=== PATIENT | female | born 1960 | race Caucasian/White ===

== ENCOUNTER 2020-03-02 11:41 | Outpatient (CLI) | payer OTHER | END 2020-03-02 23:59 | disposition home or self-care (01) | LOC: CFH 11:41 | PROVIDERS: ATTEND Nurse Practitioner Family | DX: M16.12 Unilateral primary osteoarthritis, left hip (principal); M25.752 Osteophyte, left hip ==

== ENCOUNTER → 2020-08-07 | Outpatient (CLI) | payer OTHER ==
[~2020-08-07] MED LIST: FENO130C12 PO; LEVO137T3 PO; SERT100T32 PO; SERT50TA28 PO; VALS160T3 PO
[2020-08-07 16:16] LABS: BASOPHILS % (AUTO) 1 % (0-1); EOSINOPHILS % (AUTO) 2 % (1-7); LYMPHOCYTES % (AUTO) 28 % (22-44); MEAN CORPUSCULAR HEMOGLOBIN 33.7 pg (27.0-34.8); MEAN CORPUSCULAR HGB CONC 34.1 g/dL (32.4-35.8); MEAN PLATELET VOLUME 7.7 fL (7.4-10.4); MONOCYTES % (AUTO) 9 % (2-9); NEUTROPHILS % (AUTO) 61 % (42-75); PLATELET COUNT 235 x10^3/uL (130-400); RED BLOOD COUNT 4.54 x10^6/uL (3.82-5.3); RED CELL DISTRIBUTION WIDTH 16.3 % (9.6-15.2)
[2020-08-07 16:20] LABS: MD NO
[2020-08-07 16:26] LABS: ALBUMIN 4.1 g/dL (3.4-5.0); ANION GAP 4 mmol/L (5-15); CHLORIDE 104 mmol/L (98-107)
[2020-08-07 16:30] LABS: ALANINE AMINOTRANSFERASE 29 U/L (12-78); ALKALINE PHOSPHATASE 66 U/L (45-117); BILIRUBIN,TOTAL 0.6 mg/dL (0.2-1.0); CREATININE 1.06 mg/dL (0.55-1.02); TOTAL PROTEIN 8.4 g/dL (6.4-8.2)
== END | disposition home or self-care (01) ==
LOC: STAR 14:31
PROVIDERS: ATTEND Orthopaedic Surgery
DX: Z01.818 Encounter for other preprocedural examination (principal); M25.552 Pain in left hip
CPT/HCPCS: 36415; 80053; 85025; 87081; 93005

== ENCOUNTER → 2020-08-10 | Outpatient (CLI) | payer OTHER | END | disposition home or self-care (01) | LOC: STAR 15:34 | PROVIDERS: ATTEND Anesthesiology | DX: Z01.812 Encounter for preprocedural laboratory examination (principal); Z20.828 Contact with and (suspected) exposure to other viral communicable diseases | CPT/HCPCS: 36415; 87635 ==

== ENCOUNTER 2020-08-15 12:32 | Observation (INO) | payer OTHER ==
[~2020-08-15] VITALS: Ht 167.6 cm; Wt 103.6 kg
[2020-08-15 13:17] VITALS: BP 143/85
[2020-08-15] MEDS ORDERED: CHLORHEXIDINE 15 ML UDC ONE (13:24)
[2020-08-15] MEDS ORDERED: LACTATED RINGERS 1,000 ML IV SCH (13:30)
[2020-08-15] MEDS ORDERED: CHLORHEXIDINE 15 ML UDC MM ONE (13:30)
[2020-08-15] MEDS ORDERED: SODIUM CHLORIDE 0.9% 50 ML ONE (14:16)
[2020-08-15] MEDS ORDERED: VANCOMYCIN 1,000 MG ONE (14:16)
[2020-08-15] MEDS ORDERED: KETOROLAC 60 MG/2 ML ONE (14:16)
[2020-08-15] MEDS ORDERED: ROPIvacaine/PF 0.2%, 20 ML ONE (14:16)
[2020-08-15] MEDS ORDERED: TRANEXAMIC ACID 100 MG/ML, 10ML ONE ×2 (14:16)
[2020-08-15] MEDS ORDERED: EPINEPHRINE 1 MG/ML, 1ML ONE (14:17)
[2020-08-15] MEDS ORDERED: MIDAZOLAM 1 MG/ML, 2ML ONE (15:00)
[2020-08-15] MEDS ORDERED: FENTANYL PF 250 MCG/5ML ONE (15:00)
[2020-08-15] MEDS ORDERED: SCOPOLAMINE 1MG PATCH TD ONE ×2 (15:13)
[2020-08-15] MEDS ORDERED: ACETAMINOPHEN 500 MG TABLET ONE ×2 (15:13)
[2020-08-15] MEDS ORDERED: DEXAMETHASONE 4 MG/ML, 1ML ONE (15:27)
[2020-08-15] MEDS ORDERED: ROCURONIUM 10MG/ML,5ML ONE (15:27)
[2020-08-15] MEDS ORDERED: CEFAZOLIN 1,000 MG ONE (15:27)
[2020-08-15] MEDS ORDERED: SUCCINYLCHOLINE 20 MG/ML, 10ML ONE (15:27)
[2020-08-15] MEDS ORDERED: PROPOFOL 10 MG/ML, 20ML ONE (15:27)
[2020-08-15] MEDS ORDERED: ONDANSETRON 2MG/ML, 2ML ONE (15:27)
[2020-08-15] MEDS ORDERED: OXYcodone 5 MG/5 ML ORAL.SOL UDC PO PRN (16:30)
[2020-08-15] MEDS ORDERED: DIAZEPAM 5 MG/ML, 2ML IVPush PRN (16:30)
[2020-08-15] MEDS ORDERED: LABETALOL 5MG/ML, 20ML IV PRN (16:30)
[2020-08-15] MEDS ORDERED: ACETAMINOPHEN 325 MG TABLET PO PRN (16:30)
[2020-08-15] MEDS ORDERED: ALBUTEROL SULFATE 2.5 MG/3 ML NPPB PRN (16:30)
[2020-08-15] MEDS ORDERED: KETOROLAC 30 MG/1 ML IV PRN (16:30)
[2020-08-15] MEDS ORDERED: PROMETHAZINE 25 MG/ML, 1ML IV PRN (16:30)
[2020-08-15] MEDS ORDERED: MEPERIDINE/PF 25MG/0.5ML IVPush PRN (16:30)
[2020-08-15] MEDS ORDERED: hydrALAzine 20 MG/ML, 1ML IV PRN (16:30)
[2020-08-15] MEDS ORDERED: FENTANYL PF 100 MCG/2ML ONE (17:20)
[2020-08-15] MEDS: FENTANYL PF 100 MCG/2ML IV PRN ×2 (17:25→17:30)
[2020-08-15] MEDS ORDERED: HYDROmorphone 1 MG/ML, 1ML INJ ONE (17:29)
[2020-08-15] MEDS ORDERED: MORPHINE SULFATE 4 MG/ML, 1ML IVPush PRN (17:30)
[2020-08-15] MEDS ORDERED: DIPHENHYDRAMINE 50 MG/ML, 1ML IVPush PRN (17:30)
[2020-08-15] MEDS ORDERED: DIAZEPAM 5 MG TABLET PO PRN (17:30)
[2020-08-15] MEDS ORDERED: PROMETHAZINE 12.5 MG SUPP PR PRN (17:30)
[2020-08-15] MEDS ORDERED: ONDANSETRON 2MG/ML, 2ML IVPush PRN (17:30)
[2020-08-15] MEDS ORDERED: ONDANSETRON 4 MG TABLET PO PRN (17:30)
[2020-08-15] MEDS: HYDROmorphone 2 MG/ML, 1ML IVPush PRN ×2 (17:35→17:42)
[2020-08-15] MEDS ORDERED: OXYcodone 5 MG/5 ML ORAL.SOL UDC ONE (17:41)
[2020-08-15] MEDS ORDERED: DIAZEPAM 5 MG/ML, 2ML ONE (17:54)
[2020-08-15] MEDS ORDERED: TRANEXAMIC ACID 1,000 MG in SODIUM CHLORIDE 0.9% 100 ML IVPB ONE (18:00)
[2020-08-15 19:40] VITALS: BP 118/72
[2020-08-15] MEDS: DOCUSATE 100 MG CAPSULE PO SCH (20:18)
[2020-08-15] MEDS: KETOROLAC 30 MG/1 ML IV SCH (20:19)
[2020-08-15] MEDS: CEFAZOLIN PMX 1GM/50ML 50 ML IVPB SCH (23:33)
[2020-08-15] MEDS: OXYcodone/APAP 5/325MG TABLET PO PRN (23:35)
[2020-08-15 23:43] VITALS: BP 111/61
[2020-08-16] MEDS: OXYcodone/APAP 5/325MG TABLET PO PRN ×2 (03:16→08:20)
[2020-08-16 03:30] VITALS: BP 116/64
[2020-08-16] MEDS: KETOROLAC 30 MG/1 ML IV SCH ×2 (03:30→10:46)
[2020-08-16] MEDS ORDERED: ASPIRIN 81 MG TABLET EC PO SCH ×2 (06:00→18:00)
[2020-08-16 07:55] VITALS: BP 120/59
[2020-08-16] MEDS: CEFAZOLIN PMX 1GM/50ML 50 ML IVPB SCH (08:19)
[2020-08-16] MEDS: DOCUSATE 100 MG CAPSULE PO SCH (08:20)
[2020-08-16] MEDS ORDERED: SERTRALINE 50MG TABLET PO SCH ×2 (09:00)
[2020-08-16] MEDS ORDERED: SERTRALINE 100MG TABLET PO SCH (09:00)
[2020-08-16] MEDS ORDERED: LEVOTHYROXINE 137 MCG TABLET PO SCH (09:00)
[2020-08-16] MEDS ORDERED: VALSARTAN 160 MG TABLET PO SCH (09:00)
[2020-08-16 10:30] VITALS: BP 96/58
== END 2020-08-16 11:53 | disposition home or self-care (01) ==
LOC: OUT 12:32 → ORIP 17:15 → 2NW 18:33
PROVIDERS: ADMIT Orthopaedic Surgery; ATTEND Orthopaedic Surgery
DX: M16.12 Unilateral primary osteoarthritis, left hip (principal); I10 Essential (primary) hypertension; E03.9 Hypothyroidism, unspecified; E66.9 Obesity, unspecified; Z96.642 Presence of left artificial hip joint; Z87.891 Personal history of nicotine dependence; Z79.899 Other long term (current) drug therapy
CPT/HCPCS: 27130; 36415; 73502; 86850; 86900; 96365; 96366; 96375; 96376; 97162; C1713; C1776; G0378; J0171; J0330; J0690; J1100; J1170; J1885; J2250; J2405; J2704; J2795; J3010; J3360; J3370; J7120

== ENCOUNTER 2021-02-15 08:03 | Inpatient (IN) | payer OTHER ==
[~2021-02-15] VITALS: Ht 167.6 cm; Wt 101.2 kg
--- NOTE | 2021-02-15 09:11 | NUR ---
PT PLACED ON ALL ROOM MONITORING. SAT READING 93% ON 4LITERS VIA NC. PT STATES LESS SOB WITH OXYGEN. IV PLACED, LABS INCLUDING BC X 1 DRAWN WITH START. REPORT TO MINGO ACEVEDO, TRANSFER OF CARE AT THIS TIME.
[2021-02-15 09:27] LABS: BASOPHILS % (AUTO) 1 % (0-1); EOSINOPHILS % (AUTO) 3 % (1-7); LYMPHOCYTES % (AUTO) 7 % (22-44); MEAN CORPUSCULAR HEMOGLOBIN 33.9 pg (27.0-34.8); MEAN CORPUSCULAR HGB CONC 33.4 g/dL (32.4-35.8); MEAN PLATELET VOLUME 7.8 fL (7.4-10.4); MONOCYTES % (AUTO) 7 % (2-9); NEUTROPHILS % (AUTO) 82 % (42-75); PLATELET COUNT 250 x10^3/uL (130-400); RED BLOOD COUNT 4.43 x10^6/uL (3.82-5.3); RED CELL DISTRIBUTION WIDTH 15.4 % (9.6-15.2)
[2021-02-15 09:33] LABS: MD NO
[2021-02-15 09:38] LABS: ALANINE AMINOTRANSFERASE 20 U/L (12-78); ALBUMIN 3.2 g/dL (3.4-5.0); ANION GAP 7 mmol/L (5-15); CALCIUM 9.1 mg/dL (8.5-10.1); CHLORIDE 107 mmol/L (98-107)
[2021-02-15 09:43] LABS: ALKALINE PHOSPHATASE 67 U/L (45-117); CREATININE 1.02 mg/dL (0.55-1.02); TOTAL PROTEIN 7.7 g/dL (6.4-8.2)
[2021-02-15] MEDS ORDERED: CEFTRIAXONE 1,000 MG in DEXTROSE 5% 50 ML IVPB ONE (10:00)
[2021-02-15] MEDS ORDERED: ENALAPRILAT 1.25 MG/ML, 2ML IVPush PRN (11:00)
[2021-02-15] MEDS ORDERED: ONDANSETRON ODT 4 MG PO PRN (11:00)
[2021-02-15] MEDS ORDERED: BENZONATATE 100 MG CAPSULE PO ONE (11:00)
[2021-02-15] MEDS ORDERED: GUAIFENESIN/DM 200-20MG, 10ML UDC PO PRN (11:00)
[2021-02-15] MEDS ORDERED: MELATONIN 5 MG TABLET PO PRN (11:00)
[2021-02-15] MEDS ORDERED: POLYETHYLENE GLYCOL 17 GM PACKET PO PRN (11:00)
[2021-02-15] MEDS ORDERED: ONDANSETRON 2MG/ML, 2ML IVPush PRN (11:00)
[2021-02-15] MEDS ORDERED: morphine SULFATE 10 MG/ML, 1ML IVPush PRN (11:00)
[2021-02-15] MEDS: DOXYCYCLINE 100 MG in DEXTROSE 5% 250 ML IV SCH ×2 (11:09→21:52)
[2021-02-15 11:13] LABS: BASOPHILS % (AUTO) 0 % (0-1); EOSINOPHILS % (AUTO) 3 % (1-7); LYMPHOCYTES % (AUTO) 10 % (22-44); MEAN CORPUSCULAR HGB CONC 33.5 g/dL (32.4-35.8); MEAN PLATELET VOLUME 7.4 fL (7.4-10.4); MONOCYTES % (AUTO) 5 % (2-9); NEUTROPHILS % (AUTO) 82 % (42-75); PLATELET COUNT 223 x10^3/uL (130-400); RED BLOOD COUNT 4.19 x10^6/uL (3.82-5.3); RED CELL DISTRIBUTION WIDTH 15.3 % (9.6-15.2)
[2021-02-15] MEDS ORDERED: BENZONATATE 100 MG CAPSULE ONE (11:24)
[2021-02-15] MEDS ORDERED: ENOXAPARIN 40 MG/0.4 ML ONE (11:24)
[2021-02-15] MEDS: ENOXAPARIN 40 MG/0.4 ML SQ SCH (11:28)
[2021-02-15 11:57] LABS: MD SCAN
[2021-02-15 12:08] LABS: HCT (SEDRATE) 42.6 % (34.6-47.8)
[2021-02-15 14:22] LABS: TROPONIN I 0.028 ng/mL (0.000-0.045)
[2021-02-15] MEDS ORDERED: OMNIPAQUE 350 MG/ML, 75ML BOTTLE ONE (15:04)
[2021-02-15] MEDS ORDERED: ACETAMINOPHEN 325 MG TABLET ONE (15:57)
[2021-02-15] MEDS: ACETAMINOPHEN 325 MG TABLET PO PRN ×2 (15:58→21:23)
--- NOTE | 2021-02-15 16:05 | NUR ---
PT MEDICATED PER MAR FOR PAIN
[2021-02-15 16:26] LABS: RAPID INFLUENZA A Negative (Negative); RAPID INFLUENZA B Negative (Negative)
[2021-02-15 17:44] VITALS: BP 123/75
[2021-02-15] MEDS ORDERED: FUROSEMIDE 40 MG/4 ML IV ONE (18:30)
[2021-02-15 20:39] LABS: TROPONIN I < 0.015 ng/mL (0.000-0.045)
[2021-02-15 21:05] VITALS: BP 123/85
[2021-02-16 00:58] VITALS: BP 101/65
[2021-02-16] MEDS ORDERED: FUROSEMIDE 20 MG/2 ML IV ONE (01:30)
[2021-02-16 04:19] LABS: ALBUMIN 2.8 g/dL (3.4-5.0); ANION GAP 5 mmol/L (5-15); CALCIUM 8.6 mg/dL (8.5-10.1); CHLORIDE 102 mmol/L (98-107)
[2021-02-16 04:25] LABS: ALANINE AMINOTRANSFERASE 22 U/L (12-78); ALKALINE PHOSPHATASE 67 U/L (45-117); BILIRUBIN,TOTAL 1.1 mg/dL (0.2-1.0); CHOL/HDL RATIO 4.5; CHOLESTEROL, TOTAL 134 mg/dL (140-239); CREATININE 1.01 mg/dL (0.55-1.02); HDL CHOL % 22 % (28-40); HDL CHOLESTEROL (DIRECT) 30 mg/dL (40-60); LDL CHOLESTEROL,CALCULATED 82 mg/dL (54-169); LDL/HDL RATIO 2.7 (0.5-3.0); TOTAL PROTEIN 7.3 g/dL (6.4-8.2); TRIGLYCERIDES 111 mg/dL (50-200); VLDL CHOLESTEROL 22 mg/dL (0-25)
[2021-02-16] MEDS: LEVOTHYROXINE 137 MCG TABLET PO SCH (05:15)
[2021-02-16] MEDS: ACETAMINOPHEN 325 MG TABLET PO PRN ×2 (05:15→10:37)
[2021-02-16 07:57] VITALS: BP 98/66
[2021-02-16] MEDS ORDERED: SERTRALINE 100MG TABLET PO SCH (09:00)
[2021-02-16] MEDS: VALSARTAN 160 MG TABLET PO SCH (10:04)
[2021-02-16] MEDS: SERTRALINE 50MG TABLET PO SCH (10:04)
[2021-02-16] MEDS: DOXYCYCLINE 100 MG in DEXTROSE 5% 250 ML IV SCH (10:05)
[2021-02-16] MEDS: ENOXAPARIN 40 MG/0.4 ML SQ SCH (10:24)
[2021-02-16] MEDS ORDERED: methylPREDNISolone SOD SUCC 125 MG/2 ML IVPush SCH (11:00)
[2021-02-16 13:28] VITALS: BP 103/70
[2021-02-16] MEDS ORDERED: OMNIPAQUE 350 MG/ML, 75ML BOTTLE ONE (14:45)
[2021-02-16 18:39] VITALS: BP 116/77
[2021-02-17 01:06] VITALS: BP 114/76
[2021-02-17] MEDS: LEVOTHYROXINE 137 MCG TABLET PO SCH (05:30)
[2021-02-17 05:37] LABS: BASOPHILS % (AUTO) 0 % (0-1); EOSINOPHILS % (AUTO) 0 % (1-7); LYMPHOCYTES % (AUTO) 6 % (22-44); MEAN CORPUSCULAR HEMOGLOBIN 33.8 pg (27.0-34.8); MEAN CORPUSCULAR HGB CONC 33.5 g/dL (32.4-35.8); MONOCYTES % (AUTO) 4 % (2-9); NEUTROPHILS % (AUTO) 90 % (42-75); PLATELET COUNT 298 x10^3/uL (130-400); RED BLOOD COUNT 4.27 x10^6/uL (3.82-5.3); RED CELL DISTRIBUTION WIDTH 14.7 % (9.6-15.2)
[2021-02-17 05:44] LABS: ALBUMIN 2.7 g/dL (3.4-5.0); ANION GAP 7 mmol/L (5-15); CALCIUM 9.4 mg/dL (8.5-10.1); CHLORIDE 105 mmol/L (98-107)
[2021-02-17 05:51] LABS: ALANINE AMINOTRANSFERASE 22 U/L (12-78); ALKALINE PHOSPHATASE 71 U/L (45-117); BILIRUBIN,TOTAL 0.7 mg/dL (0.2-1.0); TOTAL PROTEIN 7.6 g/dL (6.4-8.2)
[2021-02-17 05:56] LABS: MD SCAN
[2021-02-17 07:27] VITALS: BP 103/66
[2021-02-17] MEDS ORDERED: FUROSEMIDE 40 MG TABLET PO SCH (09:00)
[2021-02-17] MEDS: VALSARTAN 160 MG TABLET PO SCH (09:05)
[2021-02-17] MEDS: SERTRALINE 50MG TABLET PO SCH (09:05)
[2021-02-17] MEDS: ENOXAPARIN 40 MG/0.4 ML SQ SCH (11:00)
[2021-02-17] MEDS: ACETAMINOPHEN 325 MG TABLET PO PRN (11:04)
[2021-02-17 11:35] VITALS: BP 101/67
[2021-02-17 21:56] VITALS: BP 107/69
[2021-02-18 02:00] VITALS: BP 99/62
[2021-02-18] MEDS: LEVOTHYROXINE 137 MCG TABLET PO SCH (05:21)
[2021-02-18] MEDS: ACETAMINOPHEN 325 MG TABLET PO PRN (05:42)
[2021-02-18 05:45] LABS: BASOPHILS % (AUTO) 0 % (0-1); EOSINOPHILS % (AUTO) 0 % (1-7); LYMPHOCYTES % (AUTO) 10 % (22-44); MEAN CORPUSCULAR HEMOGLOBIN 33.6 pg (27.0-34.8); MEAN CORPUSCULAR HGB CONC 33.3 g/dL (32.4-35.8); MEAN PLATELET VOLUME 7.9 fL (7.4-10.4); MONOCYTES % (AUTO) 5 % (2-9); NEUTROPHILS % (AUTO) 84 % (42-75); PLATELET COUNT 304 x10^3/uL (130-400); RED BLOOD COUNT 4.04 x10^6/uL (3.82-5.3); RED CELL DISTRIBUTION WIDTH 14.7 % (9.6-15.2)
[2021-02-18 05:49] LABS: MD NO
[2021-02-18 05:50] LABS: ALANINE AMINOTRANSFERASE 22 U/L (12-78); ALBUMIN 2.6 g/dL (3.4-5.0); ANION GAP 6 mmol/L (5-15); CALCIUM 9.1 mg/dL (8.5-10.1); CHLORIDE 105 mmol/L (98-107); CREATININE 0.84 mg/dL (0.55-1.02)
[2021-02-18 05:53] LABS: ALKALINE PHOSPHATASE 72 U/L (45-117); BILIRUBIN,TOTAL 0.6 mg/dL (0.2-1.0); TOTAL PROTEIN 7.2 g/dL (6.4-8.2)
[2021-02-18 06:55] VITALS: BP 103/66
[2021-02-18 07:55] LABS: D-DIMER 1.7 ug/mlFEU (0.00-0.52); INTERNATIONAL NORMALIZED RATIO 1.07 (0.93-1.1); PROTHROMBIN TIME 11.4 Seconds (9.6-11.5)
[2021-02-18] MEDS ORDERED: FUROSEMIDE 40 MG/4 ML IV ONE (08:30)
[2021-02-18] MEDS ORDERED: POTASSIUM CHLORIDE 20 MEQ TAB.ER.PRT PO ONE (08:30)
[2021-02-18] MEDS: VALSARTAN 160 MG TABLET PO SCH (09:00)
[2021-02-18] MEDS: SERTRALINE 50MG TABLET PO SCH (09:15)
[2021-02-18 10:32] LABS: HCT (SEDRATE) 39.8 % (34.6-47.8)
[2021-02-18] MEDS ORDERED: CYANOCOBALAMIN 1,000 MCG/ML, 1ML IM ONE (11:00)
[2021-02-18] MEDS: ENOXAPARIN 40 MG/0.4 ML SQ SCH (11:31)
[2021-02-18] MEDS: POTASSIUM CHLORIDE 20 MEQ TAB.ER.PRT PO SCH (17:41)
[2021-02-18] MEDS: FUROSEMIDE 40 MG/4 ML IV SCH (17:41)
[2021-02-19] MEDS: ACETAMINOPHEN 325 MG TABLET PO PRN (03:17)
[2021-02-19 04:34] LABS: ANION GAP 4 mmol/L (5-15); CALCIUM 9.5 mg/dL (8.5-10.1); CHLORIDE 103 mmol/L (98-107); CREATININE 0.86 mg/dL (0.55-1.02)
[2021-02-19] MEDS: LEVOTHYROXINE 137 MCG TABLET PO SCH (05:48)
[2021-02-19] MEDS: POTASSIUM CHLORIDE 20 MEQ TAB.ER.PRT PO SCH ×2 (07:58→16:58)
[2021-02-19] MEDS: FUROSEMIDE 40 MG/4 ML IV SCH ×2 (07:58→16:58)
[2021-02-19] MEDS: SERTRALINE 50MG TABLET PO SCH (07:58)
[2021-02-19] MEDS: ENOXAPARIN 40 MG/0.4 ML SQ SCH (10:45)
[2021-02-20 04:35] LABS: ANION GAP 6 mmol/L (5-15); CALCIUM 9.4 mg/dL (8.5-10.1); CHLORIDE 103 mmol/L (98-107)
[2021-02-20 04:37] LABS: CREATININE 0.79 mg/dL (0.55-1.02)
[2021-02-20] MEDS: LEVOTHYROXINE 137 MCG TABLET PO SCH (06:06)
[2021-02-20] MEDS: SERTRALINE 50MG TABLET PO SCH (08:32)
[2021-02-20] MEDS: POTASSIUM CHLORIDE 20 MEQ TAB.ER.PRT PO SCH ×2 (08:32→16:27)
[2021-02-20] MEDS: FUROSEMIDE 40 MG/4 ML IV SCH ×2 (08:32→16:27)
[2021-02-20] MEDS: ENOXAPARIN 40 MG/0.4 ML SQ SCH (10:45)
[2021-02-21] MEDS: ACETAMINOPHEN 325 MG TABLET PO PRN (05:03)
[2021-02-21] MEDS: LEVOTHYROXINE 137 MCG TABLET PO SCH (05:03)
[2021-02-21] MEDS ORDERED: FUROSEMIDE 40 MG/4 ML IV STA (05:22)
[2021-02-21 06:12] LABS: CHLORIDE 102 mmol/L (98-107)
[2021-02-21 06:23] LABS: ANION GAP 7 mmol/L (5-15); CALCIUM 9.5 mg/dL (8.5-10.1)
[2021-02-21] MEDS: FUROSEMIDE 40 MG/4 ML IV SCH ×2 (07:30→17:31)
[2021-02-21] MEDS ORDERED: MIDAZOLAM 1 MG/ML, 5ML IVPush ONE (09:00)
[2021-02-21] MEDS ORDERED: ETOMIDATE 20 MG/10 ML IVPush ONE (09:00)
[2021-02-21] MEDS: PROPOFOL 100 ML IV PRN ×4 (09:34→19:44)
[2021-02-21] MEDS ORDERED: NOREPINEPHRINE 1 MG/ML, 4ML ONE (09:34)
[2021-02-21] MEDS ORDERED: LIDOCAINE-MPF 1%, 2ML ENDO PRN (10:00)
[2021-02-21] MEDS ORDERED: PHARMACY MAY ADJ FOR RENAL FX MC SCH (10:00)
[2021-02-21] MEDS ORDERED: VECURONIUM 10 MG IVPush ONE (10:00)
[2021-02-21] MEDS: FENTANYL PF 100 MCG/2ML IVPush PRN (10:47)
[2021-02-21] MEDS ORDERED: MIDAZOLAM HCL 50 MG in SODIUM CHLORIDE 0.9% 40 ML IV PRN (11:00)
[2021-02-21] MEDS: MIDAZOLAM HCL 50 MG in SODIUM CHLORIDE 0.9% 40 ML IV PRN ×3 (11:25→22:41)
[2021-02-21] MEDS ORDERED: NOREPINEPHRINE 8 MG in SODIUM CHLORIDE 0.9% 242 ML IV PRN (11:30)
[2021-02-21] MEDS ORDERED: LACTATED RINGERS 500 ML IVBOLUS ONE (11:30)
[2021-02-21] MEDS: ENOXAPARIN 40 MG/0.4 ML SQ SCH (12:25)
[2021-02-21] MEDS: SERTRALINE 50MG TABLET PO SCH (12:25)
[2021-02-21] MEDS: methylPREDNISolone SOD SUCC 40 MG/ML IV SCH ×2 (12:25→20:45)
[2021-02-21] MEDS: FAMOTIDINE 20 MG/2 ML IV SCH ×2 (12:25→20:45)
[2021-02-21] MEDS: POTASSIUM CHLORIDE 20 MEQ TAB.ER.PRT PO SCH ×2 (12:26→17:31)
[2021-02-21] MEDS: FENTANYL PF 1,000 MCG in SODIUM CHLORIDE 0.9% 80 ML IV PRN (15:36)
--- NOTE | 2021-02-21 15:42 | NUR ---
Tube feeding: Promote goal: 50 ml/hr on propofol, 50 ml/hr off propofol Addendum: 02/21/21 at [address] Amended: Links added.
[2021-02-21] MEDS ORDERED: VECURONIUM 10 MG ONE (16:03)
[2021-02-21] MEDS ORDERED: MIDAZOLAM 1 MG/ML, 5ML ONE (16:03)
[2021-02-21] MEDS ORDERED: PROPOFOL 10 MG/ML, 100ML IV ONE (16:03)
[2021-02-21] MEDS ORDERED: ETOMIDATE 20 MG/10 ML ONE (16:03)
--- NOTE | 2021-02-21 16:10 | NUR ---
Vital HP:goal: 55 ml/hr on propofol, 65 ml/hr off propofol Addendum: 02/21/21 at [address] Amended: Links added.
[2021-02-22] MEDS: PROPOFOL 100 ML IV PRN ×6 (00:40→23:44)
[2021-02-22 04:25] LABS: BASOPHILS % (AUTO) 0 % (0-1); EOSINOPHILS % (AUTO) 1 % (1-7); LYMPHOCYTES % (AUTO) 8 % (22-44); MEAN CORPUSCULAR HEMOGLOBIN 33.5 pg (27.0-34.8); MEAN CORPUSCULAR HGB CONC 33.8 g/dL (32.4-35.8); MEAN PLATELET VOLUME 7.8 fL (7.4-10.4); MONOCYTES % (AUTO) 5 % (2-9); NEUTROPHILS % (AUTO) 86 % (42-75); PLATELET COUNT 400 x10^3/uL (130-400); RED BLOOD COUNT 4.09 x10^6/uL (3.82-5.3); RED CELL DISTRIBUTION WIDTH 14.5 % (9.6-15.2)
[2021-02-22 04:34] LABS: CALCIUM 9.1 mg/dL (8.5-10.1); CHLORIDE 103 mmol/L (98-107)
[2021-02-22 04:35] LABS: CREATININE 0.71 mg/dL (0.55-1.02); MD NO
[2021-02-22] MEDS: methylPREDNISolone SOD SUCC 40 MG/ML IV SCH ×3 (04:40→21:06)
[2021-02-22] MEDS: LEVOTHYROXINE 137 MCG TABLET PO SCH (04:40)
[2021-02-22 05:14] LABS: ANION GAP 2 mmol/L (5-15)
[2021-02-22] MEDS: QUETIAPINE 25MG TABLET PO SCH ×2 (08:57→21:06)
[2021-02-22] MEDS: SERTRALINE 50MG TABLET PO SCH (08:57)
[2021-02-22] MEDS: FAMOTIDINE 20 MG/2 ML IV SCH ×2 (09:00→21:06)
[2021-02-22] MEDS: ENOXAPARIN 40 MG/0.4 ML SQ SCH (09:00)
[2021-02-22] MEDS: MIDAZOLAM HCL 50 MG in SODIUM CHLORIDE 0.9% 40 ML IV PRN (09:53)
[2021-02-23] MEDS: MIDAZOLAM HCL 50 MG in SODIUM CHLORIDE 0.9% 40 ML IV PRN ×2 (00:47→10:49)
[2021-02-23] MEDS: PROPOFOL 100 ML IV PRN ×6 (03:27→22:09)
[2021-02-23] MEDS: FENTANYL PF 1,000 MCG in SODIUM CHLORIDE 0.9% 80 ML IV PRN (03:46)
[2021-02-23 04:28] LABS: BASOPHILS % (AUTO) 0 % (0-1); EOSINOPHILS % (AUTO) 1 % (1-7); LYMPHOCYTES % (AUTO) 9 % (22-44); MEAN CORPUSCULAR HEMOGLOBIN 33.8 pg (27.0-34.8); MEAN CORPUSCULAR HGB CONC 33.6 g/dL (32.4-35.8); MEAN PLATELET VOLUME 7.9 fL (7.4-10.4); MONOCYTES % (AUTO) 5 % (2-9); NEUTROPHILS % (AUTO) 85 % (42-75); PLATELET COUNT 419 x10^3/uL (130-400); RED BLOOD COUNT 3.96 x10^6/uL (3.82-5.3)
[2021-02-23 04:30] LABS: MD NO
[2021-02-23 04:35] LABS: ANION GAP 5 mmol/L (5-15); CALCIUM 9.1 mg/dL (8.5-10.1); CHLORIDE 105 mmol/L (98-107); CREATININE 0.62 mg/dL (0.55-1.02)
[2021-02-23] MEDS: LEVOTHYROXINE 137 MCG TABLET PO SCH (05:39)
[2021-02-23] MEDS: methylPREDNISolone SOD SUCC 40 MG/ML IV SCH ×2 (05:39→17:21)
[2021-02-23] MEDS ORDERED: BISACODYL 10 MG SUPP PR SCH (09:00)
[2021-02-23] MEDS ORDERED: LACTULOSE 10 GM/15 ML UDC PO PRN (09:00)
[2021-02-23] MEDS ORDERED: LACTULOSE 10 GM/15 ML UDC PO SCH (09:00)
[2021-02-23] MEDS ORDERED: BISACODYL 10 MG SUPP PR PRN (09:00)
[2021-02-23] MEDS: SERTRALINE 50MG TABLET PO SCH (09:03)
[2021-02-23] MEDS: ENOXAPARIN 40 MG/0.4 ML SQ SCH (09:03)
[2021-02-23] MEDS: METHYLNALTREXONE 12 MG/0.6 ML SYR SQ SCH (09:03)
[2021-02-23] MEDS: QUETIAPINE 25MG TABLET PO SCH ×2 (09:03→21:46)
[2021-02-23] MEDS: FAMOTIDINE 20 MG/2 ML IV SCH ×2 (09:04→22:21)
[2021-02-24] MEDS: PROPOFOL 100 ML IV PRN ×6 (01:44→21:15)
[2021-02-24 04:27] LABS: BASOPHILS % (AUTO) 0 % (0-1); EOSINOPHILS % (AUTO) 3 % (1-7); LYMPHOCYTES % (AUTO) 11 % (22-44); MD NO; MEAN CORPUSCULAR HEMOGLOBIN 33.5 pg (27.0-34.8); MEAN CORPUSCULAR HGB CONC 33.3 g/dL (32.4-35.8); MEAN PLATELET VOLUME 7.7 fL (7.4-10.4); MONOCYTES % (AUTO) 5 % (2-9); NEUTROPHILS % (AUTO) 80 % (42-75); PLATELET COUNT 385 x10^3/uL (130-400); RED CELL DISTRIBUTION WIDTH 14.9 % (9.6-15.2)
[2021-02-24 04:33] LABS: ANION GAP 2 mmol/L (5-15); CALCIUM 8.9 mg/dL (8.5-10.1); CHLORIDE 104 mmol/L (98-107); TRIGLYCERIDES 212 mg/dL (50-200)
[2021-02-24] MEDS: methylPREDNISolone SOD SUCC 40 MG/ML IV SCH ×2 (05:12→17:39)
[2021-02-24] MEDS: LEVOTHYROXINE 137 MCG TABLET PO SCH (05:12)
[2021-02-24] MEDS: MIDAZOLAM HCL 50 MG in SODIUM CHLORIDE 0.9% 40 ML IV PRN ×3 (05:13→21:16)
[2021-02-24] MEDS: FENTANYL PF 1,000 MCG in SODIUM CHLORIDE 0.9% 80 ML IV PRN ×2 (05:13→21:16)
[2021-02-24] MEDS: MEROPENEM 1 GM in SODIUM CHLORIDE 0.9% 100 ML IV SCH ×3 (06:39→21:32)
[2021-02-24] MEDS: FAMOTIDINE 20 MG/2 ML IV SCH ×2 (08:43→21:32)
[2021-02-24] MEDS: METHYLNALTREXONE 12 MG/0.6 ML SYR SQ SCH (08:44)
[2021-02-24] MEDS: SERTRALINE 50MG TABLET PO SCH (08:44)
[2021-02-24] MEDS: QUETIAPINE 25MG TABLET PO SCH ×2 (08:44→21:15)
[2021-02-24] MEDS ORDERED: FUROSEMIDE 40 MG/4 ML IV ONE (09:00)
[2021-02-24] MEDS: ENOXAPARIN 40 MG/0.4 ML SQ SCH (11:19)
[2021-02-24] MEDS: SENNA/DOCUSATE TABLET PO/NG SCH ×2 (11:19→21:15)
[2021-02-25] MEDS: PROPOFOL 100 ML IV PRN ×8 (00:53→22:29)
[2021-02-25 04:10] LABS: BASOPHILS % (AUTO) 1 % (0-1); EOSINOPHILS % (AUTO) 3 % (1-7); LYMPHOCYTES % (AUTO) 10 % (22-44); MEAN CORPUSCULAR HEMOGLOBIN 33.3 pg (27.0-34.8); MEAN CORPUSCULAR HGB CONC 33.5 g/dL (32.4-35.8); MEAN PLATELET VOLUME 7.6 fL (7.4-10.4); MONOCYTES % (AUTO) 4 % (2-9); NEUTROPHILS % (AUTO) 83 % (42-75); PLATELET COUNT 356 x10^3/uL (130-400); RED BLOOD COUNT 3.84 x10^6/uL (3.82-5.3); RED CELL DISTRIBUTION WIDTH 14.8 % (9.6-15.2)
[2021-02-25 04:11] LABS: MD NO
[2021-02-25 04:17] LABS: ANION GAP 1 mmol/L (5-15); CALCIUM 8.9 mg/dL (8.5-10.1); CHLORIDE 104 mmol/L (98-107)
[2021-02-25] MEDS: MIDAZOLAM HCL 50 MG in SODIUM CHLORIDE 0.9% 40 ML IV PRN ×3 (05:49→21:29)
[2021-02-25] MEDS: MEROPENEM 1 GM in SODIUM CHLORIDE 0.9% 100 ML IV SCH ×3 (05:49→21:30)
[2021-02-25] MEDS: LEVOTHYROXINE 137 MCG TABLET PO SCH (05:50)
[2021-02-25] MEDS: methylPREDNISolone SOD SUCC 40 MG/ML IV SCH (05:50)
[2021-02-25] MEDS ORDERED: VECURONIUM 50 MG in SODIUM CHLORIDE 0.9% 50 ML IV PRN (06:30)
[2021-02-25] MEDS ORDERED: VECURONIUM 10 MG IVPush ONE (06:30)
[2021-02-25] MEDS ORDERED: POTASSIUM CHLORIDE 20 MEQ PACKET ONE ×2 (08:09→20:42)
[2021-02-25] MEDS: SERTRALINE 50MG TABLET PO SCH (08:24)
[2021-02-25] MEDS: QUETIAPINE 25MG TABLET PO SCH ×2 (08:24→21:28)
[2021-02-25] MEDS: METHYLNALTREXONE 12 MG/0.6 ML SYR SQ SCH (08:24)
[2021-02-25] MEDS: SENNA/DOCUSATE TABLET PO/NG SCH ×2 (08:24→21:28)
[2021-02-25] MEDS: FAMOTIDINE 20 MG/2 ML IV SCH ×2 (08:25→21:29)
[2021-02-25] MEDS: POTASSIUM CHLORIDE 10% 40 MEQ/30 ML UDC PO SCH ×2 (08:25→21:27)
[2021-02-25] MEDS: FENTANYL PF 1,000 MCG in SODIUM CHLORIDE 0.9% 80 ML IV PRN (09:08)
[2021-02-25] MEDS: ENOXAPARIN 40 MG/0.4 ML SQ SCH (11:53)
[2021-02-25] MEDS: FENTANYL PF 2,500 MCG in SODIUM CHLORIDE 0.9% 200 ML IV PRN (14:25)
[2021-02-26] MEDS: PROPOFOL 100 ML IV PRN ×6 (01:52→21:29)
[2021-02-26 04:32] LABS: BASOPHILS % (AUTO) 0 % (0-1); EOSINOPHILS % (AUTO) 0 % (1-7); LYMPHOCYTES % (AUTO) 5 % (22-44); MD NO; MEAN CORPUSCULAR HEMOGLOBIN 33.3 pg (27.0-34.8); MEAN CORPUSCULAR HGB CONC 33.2 g/dL (32.4-35.8); MEAN PLATELET VOLUME 7.7 fL (7.4-10.4); MONOCYTES % (AUTO) 5 % (2-9); NEUTROPHILS % (AUTO) 89 % (42-75); PLATELET COUNT 383 x10^3/uL (130-400); RED BLOOD COUNT 3.71 x10^6/uL (3.82-5.3); RED CELL DISTRIBUTION WIDTH 14.8 % (9.6-15.2)
[2021-02-26 04:44] LABS: CREATININE 0.67 mg/dL (0.55-1.02)
[2021-02-26 04:52] LABS: ANION GAP 3 mmol/L (5-15)
[2021-02-26 04:53] LABS: CHLORIDE 108 mmol/L (98-107)
[2021-02-26] MEDS: LEVOTHYROXINE 137 MCG TABLET PO SCH (05:36)
[2021-02-26] MEDS: MIDAZOLAM HCL 50 MG in SODIUM CHLORIDE 0.9% 40 ML IV PRN ×3 (05:42→21:49)
[2021-02-26] MEDS: MEROPENEM 1 GM in SODIUM CHLORIDE 0.9% 100 ML IV SCH ×3 (05:50→21:48)
[2021-02-26] MEDS: QUETIAPINE 25MG TABLET PO SCH ×2 (08:38→21:48)
[2021-02-26] MEDS: FAMOTIDINE 20 MG/2 ML IV SCH ×2 (08:39→21:47)
[2021-02-26] MEDS: SENNA/DOCUSATE TABLET PO/NG SCH (08:39)
[2021-02-26] MEDS: SERTRALINE 50MG TABLET PO SCH (08:39)
[2021-02-26] MEDS: METHYLNALTREXONE 12 MG/0.6 ML SYR SQ SCH (08:39)
[2021-02-26] MEDS: FENTANYL PF 2,500 MCG in SODIUM CHLORIDE 0.9% 200 ML IV PRN ×2 (08:51→23:03)
--- NOTE | 2021-02-26 10:42 | NUR ---
Tube feed: Vital HP: goal on propofol: 60 ml/hr, off propofol: 70 ml/hr Addendum: 02/26/21 at [address] Amended: Links added.
[2021-02-26] MEDS: ENOXAPARIN 40 MG/0.4 ML SQ SCH (14:19)
[2021-02-26] MEDS: SENNA 176 MG/5 ML ORAL SOL NG SCH (23:07)
[2021-02-27] MEDS: PROPOFOL 100 ML IV PRN ×5 (00:46→21:30)
[2021-02-27 04:28] LABS: BASOPHILS % (AUTO) 0 % (0-1); EOSINOPHILS % (AUTO) 0 % (1-7); LYMPHOCYTES % (AUTO) 5 % (22-44); MEAN CORPUSCULAR HEMOGLOBIN 33.4 pg (27.0-34.8); MEAN CORPUSCULAR HGB CONC 32.8 g/dL (32.4-35.8); MEAN PLATELET VOLUME 7.9 fL (7.4-10.4); MONOCYTES % (AUTO) 4 % (2-9); NEUTROPHILS % (AUTO) 90 % (42-75); PLATELET COUNT 401 x10^3/uL (130-400); RED BLOOD COUNT 3.67 x10^6/uL (3.82-5.3); RED CELL DISTRIBUTION WIDTH 14.8 % (9.6-15.2)
[2021-02-27 04:38] LABS: ANION GAP 2 mmol/L (5-15); CALCIUM 8.9 mg/dL (8.5-10.1); CHLORIDE 110 mmol/L (98-107); CREATININE 0.59 mg/dL (0.55-1.02); TRIGLYCERIDES 192 mg/dL (50-200)
[2021-02-27 04:51] LABS: MD SCAN
[2021-02-27] MEDS: LEVOTHYROXINE 137 MCG TABLET PO SCH (05:46)
[2021-02-27] MEDS: MEROPENEM 1 GM in SODIUM CHLORIDE 0.9% 100 ML IV SCH ×3 (05:46→22:58)
[2021-02-27] MEDS: SENNA 176 MG/5 ML ORAL SOL NG SCH ×2 (08:24→21:30)
[2021-02-27] MEDS: MIDAZOLAM HCL 50 MG in SODIUM CHLORIDE 0.9% 40 ML IV PRN ×2 (08:24→12:37)
[2021-02-27] MEDS: QUETIAPINE 25MG TABLET PO SCH ×2 (08:32→21:30)
[2021-02-27] MEDS: FAMOTIDINE 20 MG/2 ML IV SCH ×2 (08:32→21:30)
[2021-02-27] MEDS: SERTRALINE 50MG TABLET PO SCH (08:32)
[2021-02-27] MEDS: METHYLNALTREXONE 12 MG/0.6 ML SYR SQ SCH (08:32)
[2021-02-27] MEDS: ENOXAPARIN 40 MG/0.4 ML SQ SCH (14:37)
[2021-02-28] MEDS: FENTANYL PF 2,500 MCG in SODIUM CHLORIDE 0.9% 200 ML IV PRN ×2 (00:10→16:59)
[2021-02-28] MEDS: PROPOFOL 100 ML IV PRN ×5 (01:53→21:07)
[2021-02-28 04:24] LABS: MEAN CORPUSCULAR HEMOGLOBIN 33.7 pg (27.0-34.8); MEAN CORPUSCULAR HGB CONC 33.4 g/dL (32.4-35.8); MEAN PLATELET VOLUME 7.9 fL (7.4-10.4); PLATELET COUNT 376 x10^3/uL (130-400); RED BLOOD COUNT 3.57 x10^6/uL (3.82-5.3); RED CELL DISTRIBUTION WIDTH 14.8 % (9.6-15.2)
[2021-02-28 04:36] LABS: CHLORIDE 110 mmol/L (98-107)
[2021-02-28 04:39] LABS: MD YES
[2021-02-28 04:41] LABS: BAND#(MANUAL) 0.29 x10^3/uL; BANDS%(MANUAL) 3 % (0-7); LYMPH#(MANUAL) 0.57 x10^3/uL (1-3.4); LYMPHS% (MANUAL) 6 % (22-44); METAMYELOCYTES% (MANUAL) 1 % (0-1); MONOS#(MANUAL) 0.29 x10^3/uL (0.3-2.7); MONOS% (MANUAL) 3 % (2-9); SEG#(MANUAL) 8.27 x10^3/uL (1.8-6.8); SEGS% (MANUAL) 87 % (42-75)
[2021-02-28 04:42] LABS: <PLATELET ESTIMATE> ADEQUATE; <RBC MORPHOLOGY> NORMAL; LARGE PLATELETS 1+
[2021-02-28 04:43] LABS: ANION GAP 2 mmol/L (5-15); CALCIUM 8.5 mg/dL (8.5-10.1); CREATININE 0.46 mg/dL (0.55-1.02)
[2021-02-28] MEDS: MIDAZOLAM HCL 50 MG in SODIUM CHLORIDE 0.9% 40 ML IV PRN ×4 (05:37→22:58)
[2021-02-28] MEDS: MEROPENEM 1 GM in SODIUM CHLORIDE 0.9% 100 ML IV SCH ×3 (05:38→21:50)
[2021-02-28] MEDS: LEVOTHYROXINE 137 MCG TABLET PO SCH (05:38)
[2021-02-28] MEDS: QUETIAPINE 25MG TABLET PO SCH ×3 (08:43→21:50)
[2021-02-28] MEDS: METHYLNALTREXONE 12 MG/0.6 ML SYR SQ SCH (08:43)
[2021-02-28] MEDS: SERTRALINE 50MG TABLET PO SCH (08:45)
[2021-02-28] MEDS: FAMOTIDINE 20 MG/2 ML IV SCH ×2 (09:27→21:50)
[2021-02-28] MEDS: SENNA 176 MG/5 ML ORAL SOL NG SCH ×2 (09:28→22:13)
[2021-02-28] MEDS: ALBUTEROL/IPRATROPIUM 2.5MG/0.5MG, 3 ML NPPB PRN (10:00)
[2021-02-28] MEDS ORDERED: MIDAZOLAM 1 MG/ML, 5ML ONE (10:26)
[2021-02-28] MEDS: FENTANYL PF 100 MCG/2ML IVPush PRN (10:27)
[2021-02-28] MEDS ORDERED: MIDAZOLAM 1 MG/ML, 5ML IVPush ONE (10:30)
[2021-02-28] MEDS: ACETAMINOPHEN 325 MG TABLET PO PRN (10:32)
[2021-02-28] MEDS ORDERED: QUETIAPINE 25MG TABLET PO ONE (11:00)
[2021-02-28] MEDS ORDERED: DIAZEPAM 5 MG/ML, 2ML IV ONE ×2 (11:30→15:30)
[2021-02-28] MEDS: ENOXAPARIN 40 MG/0.4 ML SQ SCH (14:08)
[2021-02-28] MEDS ORDERED: FUROSEMIDE 40 MG/4 ML IV ONE (14:30)
[2021-03-01] MEDS: PROPOFOL 100 ML IV PRN ×8 (00:18→22:49)
[2021-03-01] MEDS: MIDAZOLAM HCL 50 MG in SODIUM CHLORIDE 0.9% 40 ML IV PRN ×3 (04:16→22:49)
[2021-03-01 05:11] LABS: BASOPHILS % (AUTO) 0 % (0-1); EOSINOPHILS % (AUTO) 2 % (1-7); LYMPHOCYTES % (AUTO) 10 % (22-44); MEAN CORPUSCULAR HEMOGLOBIN 33.3 pg (27.0-34.8); MEAN CORPUSCULAR HGB CONC 32.8 g/dL (32.4-35.8); MEAN PLATELET VOLUME 7.7 fL (7.4-10.4); MONOCYTES % (AUTO) 5 % (2-9); NEUTROPHILS % (AUTO) 84 % (42-75); PLATELET COUNT 339 x10^3/uL (130-400); RED BLOOD COUNT 3.43 x10^6/uL (3.82-5.3); RED CELL DISTRIBUTION WIDTH 14.8 % (9.6-15.2)
[2021-03-01 05:16] LABS: CALCIUM 8.6 mg/dL (8.5-10.1); CREATININE 0.55 mg/dL (0.55-1.02)
[2021-03-01 05:30] LABS: CHLORIDE 107 mmol/L (98-107)
[2021-03-01 05:36] LABS: ANION GAP 3 mmol/L (5-15)
[2021-03-01 05:49] LABS: MD SCAN
[2021-03-01] MEDS: LEVOTHYROXINE 137 MCG TABLET PO SCH (06:14)
[2021-03-01] MEDS: MEROPENEM 1 GM in SODIUM CHLORIDE 0.9% 100 ML IV SCH ×3 (06:14→22:27)
[2021-03-01] MEDS: FENTANYL PF 2,500 MCG in SODIUM CHLORIDE 0.9% 200 ML IV PRN (07:50)
[2021-03-01] MEDS: SERTRALINE 50MG TABLET PO SCH (08:41)
[2021-03-01] MEDS: ACETAMINOPHEN 325 MG TABLET PO PRN (08:41)
[2021-03-01] MEDS: FAMOTIDINE 20 MG/2 ML IV SCH ×2 (08:41→22:26)
[2021-03-01] MEDS: QUETIAPINE 25MG TABLET PO SCH ×3 (08:41→22:27)
[2021-03-01] MEDS: METHYLNALTREXONE 12 MG/0.6 ML SYR SQ SCH (08:41)
[2021-03-01] MEDS: SENNA 176 MG/5 ML ORAL SOL NG SCH ×2 (09:22→22:27)
[2021-03-01] MEDS: ENOXAPARIN 40 MG/0.4 ML SQ SCH (14:44)
[2021-03-01] MEDS: FUROSEMIDE 40 MG/4 ML IV SCH (15:48)
[2021-03-02] MEDS: FENTANYL PF 2,500 MCG in SODIUM CHLORIDE 0.9% 200 ML IV PRN ×3 (01:21→16:44)
[2021-03-02] MEDS: PROPOFOL 100 ML IV PRN ×5 (02:39→20:14)
[2021-03-02] MEDS: MIDAZOLAM HCL 100 MG in SODIUM CHLORIDE 0.9% 80 ML IV PRN ×3 (04:36→23:42)
[2021-03-02 05:11] LABS: MEAN CORPUSCULAR HEMOGLOBIN 33.5 pg (27.0-34.8); MEAN PLATELET VOLUME 7.8 fL (7.4-10.4); PLATELET COUNT 290 x10^3/uL (130-400); RED BLOOD COUNT 3.42 x10^6/uL (3.82-5.3); RED CELL DISTRIBUTION WIDTH 15.2 % (9.6-15.2)
[2021-03-02 05:25] LABS: CHLORIDE 106 mmol/L (98-107)
[2021-03-02 05:35] LABS: ANION GAP 2 mmol/L (5-15); CALCIUM 8.5 mg/dL (8.5-10.1); TRIGLYCERIDES 216 mg/dL (50-200)
[2021-03-02 06:00] LABS: MD YES
[2021-03-02 06:01] LABS: BANDS%(MANUAL) 1 % (0-7); EOS#(MANUAL) 0.19 x10^3/uL (0.0-0.4); EOS% (MANUAL) 2 % (1-7); LYMPH#(MANUAL) 0.95 x10^3/uL (1-3.4); LYMPHS% (MANUAL) 10 % (22-44); METAMYELOCYTES# (MANUAL) 0.19 x10^3/uL (0-0); METAMYELOCYTES% (MANUAL) 2 % (0-1); MONOS#(MANUAL) 0.57 x10^3/uL (0.3-2.7); MONOS% (MANUAL) 6 % (2-9); SEG#(MANUAL) 7.51 x10^3/uL (1.8-6.8); SEGS% (MANUAL) 79 % (42-75)
[2021-03-02 06:02] LABS: <PLATELET ESTIMATE> ADEQUATE; <PLT MORPHOLOGY> NORMAL PLT MORPH; ANISOCYTOSIS 1+; POLYCHROMASIA 1+; TEAR DROPS 1+
[2021-03-02] MEDS: MEROPENEM 1 GM in SODIUM CHLORIDE 0.9% 100 ML IV SCH ×3 (06:05→21:46)
[2021-03-02] MEDS: LEVOTHYROXINE 137 MCG TABLET PO SCH (06:05)
[2021-03-02] MEDS ORDERED: methylPREDNISolone SOD SUCC 125 MG/2 ML IVPush SCH (08:00)
[2021-03-02] MEDS: FUROSEMIDE 40 MG/4 ML IV SCH ×2 (09:29→16:25)
[2021-03-02] MEDS: SENNA 176 MG/5 ML ORAL SOL NG SCH ×2 (09:29→21:46)
[2021-03-02] MEDS: SERTRALINE 50MG TABLET PO SCH (09:30)
[2021-03-02] MEDS: QUETIAPINE 25MG TABLET PO SCH ×3 (09:30→20:12)
[2021-03-02] MEDS: METHYLNALTREXONE 12 MG/0.6 ML SYR SQ SCH (09:30)
[2021-03-02] MEDS: FAMOTIDINE 20 MG/2 ML IV SCH ×2 (09:31→20:12)
[2021-03-02] MEDS ORDERED: VECURONIUM 10 MG ONE (10:36)
[2021-03-02] MEDS ORDERED: VECURONIUM 10 MG IVPush ONE (11:00)
[2021-03-02] MEDS: ENOXAPARIN 40 MG/0.4 ML SQ SCH (14:04)
[2021-03-02] MEDS: ACETAMINOPHEN 325 MG TABLET PO PRN (16:53)
[2021-03-02] MEDS: ALBUTEROL/IPRATROPIUM 2.5MG/0.5MG, 3 ML NPPB PRN (19:11)
[2021-03-03] MEDS: PROPOFOL 100 ML IV PRN ×8 (00:38→23:52)
[2021-03-03] MEDS: LEVOTHYROXINE 137 MCG TABLET PO SCH (04:42)
[2021-03-03] MEDS: MEROPENEM 1 GM in SODIUM CHLORIDE 0.9% 100 ML IV SCH ×3 (04:43→22:42)
[2021-03-03 04:56] LABS: MEAN CORPUSCULAR HEMOGLOBIN 33.4 pg (27.0-34.8); MEAN CORPUSCULAR HGB CONC 33.1 g/dL (32.4-35.8); MEAN PLATELET VOLUME 7.9 fL (7.4-10.4); PLATELET COUNT 267 x10^3/uL (130-400); RED CELL DISTRIBUTION WIDTH 15.1 % (9.6-15.2)
[2021-03-03 05:09] LABS: CALCIUM 8.8 mg/dL (8.5-10.1); CREATININE 0.46 mg/dL (0.55-1.02)
[2021-03-03 05:15] LABS: ANION GAP 1 mmol/L (5-15); CHLORIDE 105 mmol/L (98-107)
[2021-03-03 05:57] LABS: MD YES
[2021-03-03 05:58] LABS: BAND#(MANUAL) 0.26 x10^3/uL; BANDS%(MANUAL) 3 % (0-7); EOS#(MANUAL) 0.09 x10^3/uL (0.0-0.4); EOS% (MANUAL) 1 % (1-7); LYMPH#(MANUAL) 0.68 x10^3/uL (1-3.4); LYMPHS% (MANUAL) 8 % (22-44); METAMYELOCYTES# (MANUAL) 0.09 x10^3/uL (0-0); METAMYELOCYTES% (MANUAL) 1 % (0-1); MONOS#(MANUAL) 0.26 x10^3/uL (0.3-2.7); MONOS% (MANUAL) 3 % (2-9); SEG#(MANUAL) 7.14 x10^3/uL (1.8-6.8); SEGS% (MANUAL) 84 % (42-75)
[2021-03-03 05:59] LABS: ANISOCYTOSIS 1+; POLYCHROMASIA 1+
[2021-03-03 06:00] LABS: <PLATELET ESTIMATE> ADEQUATE; <PLT MORPHOLOGY> NORMAL PLT MORPH; TEAR DROPS 1+
[2021-03-03] MEDS: FENTANYL PF 2,500 MCG in SODIUM CHLORIDE 0.9% 200 ML IV PRN ×2 (06:38→20:58)
[2021-03-03] MEDS: MIDAZOLAM HCL 100 MG in SODIUM CHLORIDE 0.9% 80 ML IV PRN ×2 (06:39→20:58)
[2021-03-03] MEDS: SERTRALINE 50MG TABLET PO SCH (08:18)
[2021-03-03] MEDS: QUETIAPINE 25MG TABLET PO SCH ×3 (08:18→21:14)
[2021-03-03] MEDS: FUROSEMIDE 40 MG/4 ML IV SCH ×2 (08:19→17:00)
[2021-03-03] MEDS: FAMOTIDINE 20 MG/2 ML IV SCH ×2 (08:19→20:57)
[2021-03-03] MEDS: METHYLNALTREXONE 12 MG/0.6 ML SYR SQ SCH (08:21)
[2021-03-03] MEDS: SENNA 176 MG/5 ML ORAL SOL NG SCH ×2 (11:55→23:20)
[2021-03-03] MEDS: ACETAMINOPHEN 325 MG TABLET PO PRN ×2 (13:22→18:47)
[2021-03-03] MEDS: ENOXAPARIN 40 MG/0.4 ML SQ SCH (14:17)
[2021-03-04] MEDS: PROPOFOL 100 ML IV PRN ×5 (03:07→22:55)
[2021-03-04 04:22] LABS: MEAN CORPUSCULAR HEMOGLOBIN 33.2 pg (27.0-34.8); MEAN CORPUSCULAR HGB CONC 33.1 g/dL (32.4-35.8); MEAN PLATELET VOLUME 8.2 fL (7.4-10.4); PLATELET COUNT 233 x10^3/uL (130-400); RED BLOOD COUNT 3.41 x10^6/uL (3.82-5.3); RED CELL DISTRIBUTION WIDTH 15.2 % (9.6-15.2)
[2021-03-04 04:31] LABS: CALCIUM 8.4 mg/dL (8.5-10.1); CHLORIDE 103 mmol/L (98-107)
[2021-03-04 04:32] LABS: CREATININE 0.49 mg/dL (0.55-1.02)
[2021-03-04 04:42] LABS: ANION GAP 1 mmol/L (5-15)
[2021-03-04 04:48] LABS: MD YES
[2021-03-04 04:50] LABS: BAND#(MANUAL) 0.25 x10^3/uL; BANDS%(MANUAL) 4 % (0-7); EOS#(MANUAL) 0.06 x10^3/uL (0.0-0.4); EOS% (MANUAL) 1 % (1-7); LYMPH#(MANUAL) 0.25 x10^3/uL (1-3.4); LYMPHS% (MANUAL) 4 % (22-44); MONOS#(MANUAL) 0.19 x10^3/uL (0.3-2.7); MONOS% (MANUAL) 3 % (2-9); MYELOCYTES# (MANUAL) 0.06 x10^3/uL (0-0); MYELOCYTES% (MANUAL) 1 % (0-0); SEG#(MANUAL) 5.48 x10^3/uL (1.8-6.8); SEGS% (MANUAL) 87 % (42-75)
[2021-03-04 04:51] LABS: ANISOCYTOSIS 1+
[2021-03-04 04:52] LABS: BASOPHILLIC STIPPLING 1+; POLYCHROMASIA 1+; TEAR DROPS 1+
[2021-03-04 04:53] LABS: <PLATELET ESTIMATE> ADEQUATE; <PLT MORPHOLOGY> NORMAL PLT MORPH
[2021-03-04] MEDS: SERTRALINE 50MG TABLET PO SCH (08:48)
[2021-03-04] MEDS: LEVOTHYROXINE 137 MCG TABLET PO SCH (08:48)
[2021-03-04] MEDS: QUETIAPINE 25MG TABLET PO SCH ×3 (08:48→22:02)
[2021-03-04] MEDS: FUROSEMIDE 40 MG/4 ML IV SCH ×2 (08:48→16:27)
[2021-03-04] MEDS: METHYLNALTREXONE 12 MG/0.6 ML SYR SQ SCH (08:49)
[2021-03-04] MEDS: FAMOTIDINE 20 MG/2 ML IV SCH ×2 (08:50→22:05)
--- NOTE | 2021-03-04 10:02 | NUR ---
Vital High protein tube feeds: ON and OFF propofol: 70 ml/hr Addendum: 03/04/21 at [address] Amended: Links added.
[2021-03-04] MEDS: SENNA 176 MG/5 ML ORAL SOL NG SCH ×2 (10:30→22:02)
[2021-03-04] MEDS: FENTANYL PF 2,500 MCG in SODIUM CHLORIDE 0.9% 200 ML IV PRN ×2 (12:14→23:56)
[2021-03-04] MEDS: ACETAMINOPHEN 325 MG TABLET PO PRN (15:14)
[2021-03-04] MEDS: ENOXAPARIN 40 MG/0.4 ML SQ SCH (15:23)
[2021-03-04] MEDS: MIDAZOLAM HCL 100 MG in SODIUM CHLORIDE 0.9% 80 ML IV PRN (18:50)
[2021-03-05] MEDS: PROPOFOL 100 ML IV PRN ×6 (01:49→20:58)
[2021-03-05] MEDS: MIDAZOLAM HCL 100 MG in SODIUM CHLORIDE 0.9% 80 ML IV PRN ×2 (04:07→16:15)
[2021-03-05 04:44] LABS: MEAN CORPUSCULAR HEMOGLOBIN 33.7 pg (27.0-34.8); MEAN CORPUSCULAR HGB CONC 33.5 g/dL (32.4-35.8); MEAN PLATELET VOLUME 8.8 fL (7.4-10.4); PLATELET COUNT 212 x10^3/uL (130-400); RED BLOOD COUNT 3.31 x10^6/uL (3.82-5.3); RED CELL DISTRIBUTION WIDTH 15.2 % (9.6-15.2)
[2021-03-05 04:47] LABS: MD YES
[2021-03-05 05:00] LABS: CALCIUM 8.2 mg/dL (8.5-10.1); CHLORIDE 102 mmol/L (98-107); CREATININE 0.47 mg/dL (0.55-1.02); TRIGLYCERIDES 329 mg/dL (50-200)
[2021-03-05 05:18] LABS: ANION GAP 0 mmol/L (5-15)
[2021-03-05] MEDS: LEVOTHYROXINE 137 MCG TABLET PO SCH (05:35)
[2021-03-05 05:50] LABS: BANDS%(MANUAL) 3 % (0-7); METAMYELOCYTES# (MANUAL) 0.07 x10^3/uL (0-0); METAMYELOCYTES% (MANUAL) 1 % (0-1)
[2021-03-05 05:51] LABS: ANISOCYTOSIS 1+; EOS#(MANUAL) 0.07 x10^3/uL (0.0-0.4); EOS% (MANUAL) 1 % (1-7); LYMPH#(MANUAL) 0.68 x10^3/uL (1-3.4); LYMPHS% (MANUAL) 10 % (22-44); MONOS#(MANUAL) 0.48 x10^3/uL (0.3-2.7); MONOS% (MANUAL) 7 % (2-9); SEGS% (MANUAL) 78 % (42-75)
[2021-03-05 05:52] LABS: POLYCHROMASIA 1+
[2021-03-05 05:53] LABS: <PLATELET ESTIMATE> ADEQUATE; <PLT MORPHOLOGY> NORMAL PLT MORPH; TEAR DROPS 1+
[2021-03-05] MEDS: FUROSEMIDE 40 MG/4 ML IV SCH ×2 (07:46→17:03)
[2021-03-05] MEDS ORDERED: GLUCAGON 1 MG IM PRN (08:30)
[2021-03-05] MEDS ORDERED: DEXTROSE 50%, 50ML SYRINGE IVPush PRN (08:30)
[2021-03-05] MEDS ORDERED: DEXTROSE 4 GM TAB.CHEW PO PRN (08:30)
[2021-03-05] MEDS: SENNA 176 MG/5 ML ORAL SOL NG SCH ×2 (09:00→19:19)
[2021-03-05] MEDS: SODIUM CHLORIDE FLUSH 10ML SYR IVF SCH ×2 (09:25→20:57)
[2021-03-05] MEDS: SERTRALINE 50MG TABLET PO SCH (09:26)
[2021-03-05] MEDS: FAMOTIDINE 20 MG/2 ML IV SCH ×2 (09:26→20:58)
[2021-03-05] MEDS: QUETIAPINE 25MG TABLET PO SCH ×3 (09:26→20:58)
[2021-03-05] MEDS: METHYLNALTREXONE 12 MG/0.6 ML SYR SQ SCH (09:26)
[2021-03-05] MEDS: FENTANYL PF 2,500 MCG in SODIUM CHLORIDE 0.9% 200 ML IV PRN (14:15)
[2021-03-05] MEDS: ENOXAPARIN 40 MG/0.4 ML SQ SCH (14:43)
[2021-03-05 16:20] LABS: CLOSTRIDIUM DIFFICILE ANTIGEN NEGATIVE; CLOSTRIDIUM DIFFICILE TOXIN NEGATIVE (Negative)
[2021-03-05] MEDS: ACETAMINOPHEN 325 MG TABLET PO PRN (22:29)
[2021-03-06] MEDS: MIDAZOLAM HCL 100 MG in SODIUM CHLORIDE 0.9% 80 ML IV PRN ×2 (00:43→13:32)
[2021-03-06] MEDS: FENTANYL PF 2,500 MCG in SODIUM CHLORIDE 0.9% 200 ML IV PRN ×2 (01:00→16:10)
[2021-03-06] MEDS: PROPOFOL 100 ML IV PRN ×7 (02:45→21:16)
[2021-03-06 04:36] LABS: MEAN CORPUSCULAR HEMOGLOBIN 32.7 pg (27.0-34.8); MEAN CORPUSCULAR HGB CONC 32.6 g/dL (32.4-35.8); MEAN PLATELET VOLUME 8.5 fL (7.4-10.4); PLATELET COUNT 175 x10^3/uL (130-400); RED BLOOD COUNT 3.36 x10^6/uL (3.82-5.3); RED CELL DISTRIBUTION WIDTH 14.9 % (9.6-15.2)
[2021-03-06 04:50] LABS: CALCIUM 8.5 mg/dL (8.5-10.1); CHLORIDE 100 mmol/L (98-107)
[2021-03-06 04:53] LABS: MD YES
[2021-03-06 04:55] LABS: <PLATELET ESTIMATE> ADEQUATE; <PLT MORPHOLOGY> NORMAL PLT MORPH; ANISOCYTOSIS 1+; LYMPH#(MANUAL) 0.84 x10^3/uL (1-3.4); LYMPHS% (MANUAL) 11 % (22-44); METAMYELOCYTES# (MANUAL) 0.23 x10^3/uL (0-0); METAMYELOCYTES% (MANUAL) 3 % (0-1); MONOS% (MANUAL) 4 % (2-9); POLYCHROMASIA 1+; SEG#(MANUAL) 6.23 x10^3/uL (1.8-6.8); SEGS% (MANUAL) 82 % (42-75)
[2021-03-06] MEDS: LEVOTHYROXINE 137 MCG TABLET PO SCH (05:01)
[2021-03-06 05:09] LABS: ANION GAP 1 mmol/L (5-15)
[2021-03-06] MEDS: FUROSEMIDE 40 MG/4 ML IV SCH ×2 (08:58→16:21)
[2021-03-06] MEDS: FAMOTIDINE 20 MG/2 ML IV SCH ×2 (08:59→21:16)
[2021-03-06] MEDS: SERTRALINE 50MG TABLET PO SCH (08:59)
[2021-03-06] MEDS: METHYLNALTREXONE 12 MG/0.6 ML SYR SQ SCH (08:59)
[2021-03-06] MEDS: QUETIAPINE 25MG TABLET PO SCH ×3 (08:59→21:16)
[2021-03-06] MEDS: SODIUM CHLORIDE FLUSH 10ML SYR IVF SCH ×2 (09:00→21:16)
[2021-03-06] MEDS: SENNA 176 MG/5 ML ORAL SOL NG SCH ×2 (09:00→22:55)
[2021-03-06] MEDS: ENOXAPARIN 40 MG/0.4 ML SQ SCH (15:14)
[2021-03-06] MEDS: ACETAMINOPHEN 325 MG TABLET PO PRN ×2 (16:21→21:36)
[2021-03-07] MEDS: MIDAZOLAM HCL 100 MG in SODIUM CHLORIDE 0.9% 80 ML IV PRN ×4 (00:58→20:17)
[2021-03-07] MEDS: PROPOFOL 100 ML IV PRN ×8 (00:58→21:55)
[2021-03-07] MEDS: FENTANYL PF 2,500 MCG in SODIUM CHLORIDE 0.9% 200 ML IV PRN ×2 (03:27→16:56)
[2021-03-07 04:13] LABS: BASOPHILS % (AUTO) 1 % (0-1); EOSINOPHILS % (AUTO) 0 % (1-7); LYMPHOCYTES % (AUTO) 10 % (22-44); MEAN CORPUSCULAR HGB CONC 32.9 g/dL (32.4-35.8); MEAN PLATELET VOLUME 8.6 fL (7.4-10.4); MONOCYTES % (AUTO) 5 % (2-9); NEUTROPHILS % (AUTO) 83 % (42-75); PLATELET COUNT 182 x10^3/uL (130-400)
[2021-03-07 04:25] LABS: CALCIUM 8.4 mg/dL (8.5-10.1); CHLORIDE 98 mmol/L (98-107); CREATININE 0.51 mg/dL (0.55-1.02)
[2021-03-07 04:38] LABS: MD SCAN
[2021-03-07 04:49] LABS: ANION GAP 2 mmol/L (5-15)
[2021-03-07] MEDS: LEVOTHYROXINE 137 MCG TABLET PO SCH (05:19)
[2021-03-07] MEDS: METHYLNALTREXONE 12 MG/0.6 ML SYR SQ SCH (08:21)
[2021-03-07] MEDS: FUROSEMIDE 40 MG/4 ML IV SCH ×2 (08:21→16:09)
[2021-03-07] MEDS: QUETIAPINE 25MG TABLET PO SCH ×3 (08:21→21:52)
[2021-03-07] MEDS: FAMOTIDINE 20 MG/2 ML IV SCH ×2 (08:21→21:52)
[2021-03-07] MEDS: SERTRALINE 50MG TABLET PO SCH (08:21)
[2021-03-07] MEDS: SODIUM CHLORIDE FLUSH 10ML SYR IVF SCH ×2 (08:21→21:50)
[2021-03-07] MEDS: SENNA 176 MG/5 ML ORAL SOL NG SCH ×2 (08:22→21:56)
[2021-03-07] MEDS: INSULIN LISPRO 100 UNITS/ML, PEN SQ-INSULIN SCH ×3 (08:24→21:54)
[2021-03-07] MEDS ORDERED: POTASSIUM CHLORIDE 20 MEQ PACKET PO ONE ×2 (09:30→12:00)
[2021-03-07] MEDS: ENOXAPARIN 40 MG/0.4 ML SQ SCH (14:46)
[2021-03-07] MEDS ORDERED: VECURONIUM 10 MG IVPush ONE (16:00)
[2021-03-08] MEDS: PROPOFOL 100 ML IV PRN ×7 (00:38→22:31)
[2021-03-08] MEDS: INSULIN LISPRO 100 UNITS/ML, PEN SQ-INSULIN SCH ×4 (03:47→22:02)
[2021-03-08 04:32] LABS: CALCIUM 8.5 mg/dL (8.5-10.1); CHLORIDE 98 mmol/L (98-107); CREATININE 0.43 mg/dL (0.55-1.02); TRIGLYCERIDES 395 mg/dL (50-200)
[2021-03-08 04:36] LABS: MEAN CORPUSCULAR HEMOGLOBIN 33.4 pg (27.0-34.8); MEAN CORPUSCULAR HGB CONC 33.6 g/dL (32.4-35.8); MEAN PLATELET VOLUME 9.6 fL (7.4-10.4); PLATELET COUNT 189 x10^3/uL (130-400); RED BLOOD COUNT 3.27 x10^6/uL (3.82-5.3); RED CELL DISTRIBUTION WIDTH 15.6 % (9.6-15.2)
[2021-03-08 04:44] LABS: ANION GAP 0 mmol/L (5-15)
[2021-03-08] MEDS: LEVOTHYROXINE 137 MCG TABLET PO SCH (05:49)
[2021-03-08 05:50] LABS: MD YES
[2021-03-08 05:51] LABS: BAND#(MANUAL) 0.42 x10^3/uL; BANDS%(MANUAL) 5 % (0-7); EOS#(MANUAL) 0.08 x10^3/uL (0.0-0.4); EOS% (MANUAL) 1 % (1-7); LYMPH#(MANUAL) 0.59 x10^3/uL (1-3.4); LYMPHS% (MANUAL) 7 % (22-44); METAMYELOCYTES# (MANUAL) 0.34 x10^3/uL (0-0); METAMYELOCYTES% (MANUAL) 4 % (0-1); MONOS#(MANUAL) 0.17 x10^3/uL (0.3-2.7); MONOS% (MANUAL) 2 % (2-9); SEGS% (MANUAL) 81 % (42-75)
[2021-03-08 05:52] LABS: <PLATELET ESTIMATE> ADEQUATE; <PLT MORPHOLOGY> NORMAL PLT MORPH; ANISOCYTOSIS 1+; POLYCHROMASIA 1+
[2021-03-08] MEDS: MIDAZOLAM HCL 100 MG in SODIUM CHLORIDE 0.9% 80 ML IV PRN ×2 (06:49→16:55)
[2021-03-08] MEDS: FENTANYL PF 2,500 MCG in SODIUM CHLORIDE 0.9% 200 ML IV PRN ×2 (06:59→20:00)
[2021-03-08] MEDS: SENNA 176 MG/5 ML ORAL SOL NG SCH ×2 (09:00→21:00)
[2021-03-08] MEDS: SODIUM CHLORIDE FLUSH 10ML SYR IVF SCH ×2 (09:00→21:52)
[2021-03-08] MEDS: FAMOTIDINE 20 MG/2 ML IV SCH ×2 (10:22→21:52)
[2021-03-08] MEDS: QUETIAPINE 25MG TABLET PO SCH ×3 (10:22→21:00)
[2021-03-08] MEDS: SERTRALINE 50MG TABLET PO SCH (10:22)
[2021-03-08] MEDS: FUROSEMIDE 40 MG/4 ML IV SCH ×2 (10:22→16:49)
[2021-03-08] MEDS ORDERED: VECURONIUM 10 MG IVPush ONE (10:30)
[2021-03-08] MEDS: ENOXAPARIN 40 MG/0.4 ML SQ SCH (12:59)
[2021-03-08 21:40] LABS: MEAN CORPUSCULAR HEMOGLOBIN 32.5 pg (27.0-34.8); MEAN CORPUSCULAR HGB CONC 32.8 g/dL (32.4-35.8); MEAN PLATELET VOLUME 8.7 fL (7.4-10.4); PLATELET COUNT 166 x10^3/uL (130-400); RED CELL DISTRIBUTION WIDTH 15.6 % (9.6-15.2)
[2021-03-08 21:51] LABS: ALBUMIN 2.3 g/dL (3.4-5.0); CALCIUM 8.5 mg/dL (8.5-10.1); CHLORIDE 94 mmol/L (98-107)
[2021-03-08] MEDS: PIPERACILLIN/TAZO 3.375 GM in DEXTROSE 5% 50 ML IVPB SCH (21:52)
[2021-03-08 21:54] LABS: INTERNATIONAL NORMALIZED RATIO 1.02 (0.93-1.1); PROTHROMBIN TIME 10.9 Seconds (9.6-11.5)
[2021-03-08 21:56] LABS: ALANINE AMINOTRANSFERASE 155 U/L (12-78); ALKALINE PHOSPHATASE 69 U/L (45-117); BILIRUBIN, DIRECT 0.3 mg/dL (0.1-0.2); BILIRUBIN,INDIRECT 0.2 mg/dL (0.0-2.0); BILIRUBIN,TOTAL 0.5 mg/dL (0.2-1.0); CREATININE 0.56 mg/dL (0.55-1.02); TOTAL PROTEIN 6.2 g/dL (6.4-8.2)
[2021-03-08 22:12] LABS: ANION GAP 3 mmol/L (5-15)
[2021-03-08 22:14] LABS: MD YES
[2021-03-08 22:14] LABS: MICROSCOPIC INDICATED
[2021-03-08 22:16] LABS: BANDS%(MANUAL) 7 % (0-7); LYMPH#(MANUAL) 0.09 x10^3/uL (1-3.4); LYMPHS% (MANUAL) 1 % (22-44); METAMYELOCYTES# (MANUAL) 0.09 x10^3/uL (0-0); METAMYELOCYTES% (MANUAL) 1 % (0-1); MONOS#(MANUAL) 0.34 x10^3/uL (0.3-2.7); MONOS% (MANUAL) 4 % (2-9); MYELOCYTES# (MANUAL) 0.09 x10^3/uL (0-0); MYELOCYTES% (MANUAL) 1 % (0-0); SEGS% (MANUAL) 86 % (42-75)
[2021-03-08 22:17] LABS: ANISOCYTOSIS 1+; BASOPHILLIC STIPPLING 1+; POLYCHROMASIA 1+
[2021-03-08 22:18] LABS: <PLATELET ESTIMATE> ADEQUATE; <PLT MORPHOLOGY> NORMAL PLT MORPH
[2021-03-09] MEDS: PROPOFOL 100 ML IV PRN ×3 (01:55→07:29)
[2021-03-09 02:53] LABS: MEAN CORPUSCULAR HGB CONC 33.4 g/dL (32.4-35.8); MEAN PLATELET VOLUME 8.5 fL (7.4-10.4); PLATELET COUNT 161 x10^3/uL (130-400); RED CELL DISTRIBUTION WIDTH 15.3 % (9.6-15.2)
[2021-03-09] MEDS: INSULIN LISPRO 100 UNITS/ML, PEN SQ-INSULIN SCH ×2 (03:00→08:47)
[2021-03-09 03:04] LABS: INTERNATIONAL NORMALIZED RATIO 1.03 (0.93-1.1)
[2021-03-09 03:05] LABS: ALANINE AMINOTRANSFERASE 141 U/L (12-78); ALBUMIN 2.2 g/dL (3.4-5.0); CALCIUM 8.5 mg/dL (8.5-10.1); CHLORIDE 96 mmol/L (98-107); CREATININE 0.43 mg/dL (0.55-1.02)
[2021-03-09 03:09] LABS: ALKALINE PHOSPHATASE 62 U/L (45-117); BILIRUBIN, DIRECT 0.2 mg/dL (0.1-0.2); BILIRUBIN,INDIRECT 0.3 mg/dL (0.0-2.0); BILIRUBIN,TOTAL 0.5 mg/dL (0.2-1.0); TOTAL PROTEIN 6.1 g/dL (6.4-8.2)
[2021-03-09 03:22] LABS: ANION GAP 0 mmol/L (5-15)
[2021-03-09 03:30] LABS: MD YES
[2021-03-09 03:32] LABS: ANISOCYTOSIS 1+; BAND#(MANUAL) 0.83 x10^3/uL; BANDS%(MANUAL) 9 % (0-7); EOS#(MANUAL) 0.09 x10^3/uL (0.0-0.4); EOS% (MANUAL) 1 % (1-7); LYMPH#(MANUAL) 0.64 x10^3/uL (1-3.4); LYMPHS% (MANUAL) 7 % (22-44); MYELOCYTES# (MANUAL) 0.09 x10^3/uL (0-0); MYELOCYTES% (MANUAL) 1 % (0-0); SEG#(MANUAL) 7.54 x10^3/uL (1.8-6.8); SEGS% (MANUAL) 82 % (42-75)
[2021-03-09 03:33] LABS: POLYCHROMASIA 1+
[2021-03-09 03:34] LABS: <PLATELET ESTIMATE> ADEQUATE; <PLT MORPHOLOGY> NORMAL PLT MORPH; PMNS WITH VACUOLES 1+
[2021-03-09] MEDS: PIPERACILLIN/TAZO 3.375 GM in DEXTROSE 5% 50 ML IVPB SCH (05:08)
[2021-03-09] MEDS: LEVOTHYROXINE 137 MCG TABLET PO SCH (06:00)
[2021-03-09 06:45] LABS: MEAN CORPUSCULAR HEMOGLOBIN 33.3 pg (27.0-34.8); MEAN CORPUSCULAR HGB CONC 33.7 g/dL (32.4-35.8); MEAN PLATELET VOLUME 8.7 fL (7.4-10.4); PLATELET COUNT 155 x10^3/uL (130-400); RED BLOOD COUNT 3.22 x10^6/uL (3.82-5.3)
[2021-03-09 06:52] LABS: INTERNATIONAL NORMALIZED RATIO 1.02 (0.93-1.1); PROTHROMBIN TIME 10.9 Seconds (9.6-11.5)
[2021-03-09 06:54] LABS: ALANINE AMINOTRANSFERASE 131 U/L (12-78); ALBUMIN 2.3 g/dL (3.4-5.0); BILIRUBIN, DIRECT 0.2 mg/dL (0.1-0.2); CALCIUM 8.6 mg/dL (8.5-10.1); CHLORIDE 97 mmol/L (98-107); CREATININE 0.42 mg/dL (0.55-1.02)
[2021-03-09 06:58] LABS: ALKALINE PHOSPHATASE 62 U/L (45-117); BILIRUBIN,INDIRECT 0.3 mg/dL (0.0-2.0); BILIRUBIN,TOTAL 0.5 mg/dL (0.2-1.0); TOTAL PROTEIN 5.9 g/dL (6.4-8.2)
[2021-03-09 07:07] LABS: ANION GAP 0 mmol/L (5-15)
[2021-03-09 07:23] LABS: MD YES
[2021-03-09 07:27] LABS: BAND#(MANUAL) 1.47 x10^3/uL; BANDS%(MANUAL) 16 % (0-7); EOS#(MANUAL) 0.09 x10^3/uL (0.0-0.4); EOS% (MANUAL) 1 % (1-7); LYMPH#(MANUAL) 0.18 x10^3/uL (1-3.4); LYMPHS% (MANUAL) 2 % (22-44); METAMYELOCYTES# (MANUAL) 0.09 x10^3/uL (0-0); METAMYELOCYTES% (MANUAL) 1 % (0-1); MONOS#(MANUAL) 0.28 x10^3/uL (0.3-2.7); MONOS% (MANUAL) 3 % (2-9); MYELOCYTES# (MANUAL) 0.37 x10^3/uL (0-0); MYELOCYTES% (MANUAL) 4 % (0-0); SEG#(MANUAL) 6.72 x10^3/uL (1.8-6.8); SEGS% (MANUAL) 73 % (42-75)
[2021-03-09 07:29] LABS: ANISOCYTOSIS 1+; POLYCHROMASIA 1+
[2021-03-09 07:30] LABS: <PLATELET ESTIMATE> ADEQUATE; <PLT MORPHOLOGY> NORMAL PLT MORPH; BASOPHILLIC STIPPLING 1+
[2021-03-09] MEDS ORDERED: POTASSIUM CHLORIDE 40 MEQ in SODIUM CHLORIDE 0.9% 100 ML IV ONE (08:30)
[2021-03-09 08:59] LABS: MICROSCOPIC INDICATED
[2021-03-09] MEDS: QUETIAPINE 25MG TABLET PO SCH (09:00)
[2021-03-09] MEDS: SENNA 176 MG/5 ML ORAL SOL NG SCH (09:00)
[2021-03-09] MEDS: SERTRALINE 50MG TABLET PO SCH (09:00)
[2021-03-09] MEDS ORDERED: POTASSIUM CHLORIDE 40 MEQ in SODIUM CHLORIDE 0.9% 500 ML IV ONE (09:00)
[2021-03-09] MEDS: FENTANYL PF 2,500 MCG in SODIUM CHLORIDE 0.9% 200 ML IV PRN (09:20)
[2021-03-09] MEDS: FAMOTIDINE 20 MG/2 ML IV SCH (09:42)
[2021-03-09] MEDS: FUROSEMIDE 40 MG/4 ML IV SCH (09:42)
[2021-03-09] MEDS: SODIUM CHLORIDE FLUSH 10ML SYR IVF SCH (09:43)
[2021-03-09] MEDS ORDERED: HEPARIN 5,000 UNITS/ML, 1ML IV ONE (10:30)
[2021-03-09] MEDS ORDERED: MORPHINE SULFATE 4 MG/ML, 1ML IV ONE (10:30)
[2021-03-09] MEDS ORDERED: HEPARIN 5,000 UNITS/ML*10ML IV ONE (10:30)
[2021-03-09] MEDS ORDERED: MORPHINE SULFATE 4 MG/ML, 1ML IV PRN (10:30)
[2021-03-09] MEDS ORDERED: LORazepam 2 MG/ML, 1ML IV PRN (10:30)
[2021-03-09] MEDS ORDERED: ATROPINE OPHTH SOLN 1%, 5ML PO PRN (10:30)
[2021-03-09] MEDS ORDERED: LORazepam 2 MG/ML, 1ML IV ONE (10:30)
[2021-03-09] MEDS ORDERED: PROPOFOL 100 ML IV ONE (11:11)
[2021-03-09] MEDS ORDERED: morphine SULFATE 10 MG/ML, 1ML ONE (12:17)
[2021-03-09] MEDS ORDERED: morphine SULFATE ORAL.CONC 20 MG/ML PO ONE (14:00)
== END 2021-03-09 15:25 | disposition expired | DRG 207 ==
LOC: ED 08:04 → EDIP 10:00 → SUATTDRO 10:09 → 4EST 17:05 → CCU 02-18 07:59
PROVIDERS: ADMIT Hospitalist; ATTEND Internal Medicine
PROC: 5A1955Z Respiratory Ventilation, Greater than 96 Consecutive Hours (ICD-10-PCS; principal; 2021-02-21)
PROC: 02HV33Z Insertion of Infusion Device into Superior Vena Cava, Percutaneous Approach (ICD-10-PCS; 2021-02-21)
PROC: B548ZZA Ultrasonography of Superior Vena Cava, Guidance (ICD-10-PCS; 2021-02-21)
PROC: 0BH18EZ Insertion of Endotracheal Airway into Trachea, Via Natural or Artificial Opening Endoscopic (ICD-10-PCS; 2021-02-21)
PROC: 0BH17EZ Insertion of Endotracheal Airway into Trachea, Via Natural or Artificial Opening (ICD-10-PCS; 2021-02-21)
PROC: 02HV33Z Insertion of Infusion Device into Superior Vena Cava, Percutaneous Approach (ICD-10-PCS; 2021-02-28)
PROC: B548ZZA Ultrasonography of Superior Vena Cava, Guidance (ICD-10-PCS; 2021-02-28)
PROC: 0W9930Z Drainage of Right Pleural Cavity with Drainage Device, Percutaneous Approach (ICD-10-PCS; 2021-03-03)
PROC: 0T9B70Z Drainage of Bladder with Drainage Device, Via Natural or Artificial Opening (ICD-10-PCS; 2021-03-08)
PROC: 03HY32Z Insertion of Monitoring Device into Upper Artery, Percutaneous Approach (ICD-10-PCS; 2021-03-09)
PROC: 4A133B1 Monitoring of Arterial Pressure, Peripheral, Percutaneous Approach (ICD-10-PCS; 2021-03-09)
PROC: 4A133J1 Monitoring of Arterial Pulse, Peripheral, Percutaneous Approach (ICD-10-PCS; 2021-03-09)
DX: J80 Acute respiratory distress syndrome (principal); J15.6 Pneumonia due to other Gram-negative bacteria; G93.41 Metabolic encephalopathy; I50.31 Acute diastolic (congestive) heart failure; E87.1 Hypo-osmolality and hyponatremia; E87.0 Hyperosmolality and hypernatremia; J93.83 Other pneumothorax; E78.5 Hyperlipidemia, unspecified; I27.20 Pulmonary hypertension, unspecified; E03.9 Hypothyroidism, unspecified; D75.89 Other specified diseases of blood and blood-forming organs; E87.6 Hypokalemia; Z20.822 Contact with and (suspected) exposure to COVID-19; E88.09 Other disorders of plasma-protein metabolism, not elsewhere classified; F32.9 Major depressive disorder, single episode, unspecified; I11.0 Hypertensive heart disease with heart failure; J84.89 Other specified interstitial pulmonary diseases; Z66 Do not resuscitate; Z96.642 Presence of left artificial hip joint; Z85.44 Personal history of malignant neoplasm of other female genital organs; Z86.16 Personal history of COVID-19; Z72.0 Tobacco use; Z87.01 Personal history of pneumonia (recurrent)
CPT/HCPCS: 31624; 36415; 36573; 36600; 71045; 71260; 71275; 76700; 80048; 80053; 80061; 80074; 80076; 81001; 82040; 82150; 82607; 82803; 82962; 83605; 83690; 83735; 83880; 84100; 84132; 84145; 84443; 84478; 84484; 85025; 85379; 85610; 85651; 86140; 86850; 86900; 87040; 87070; 87077; 87081; 87086; 87186; 87205; 87305; 87324; 87400; 87449; 87517; 87635; 87806; 93005; 93306; 94002; 94003; 94640; 99285; G0378; J0696; J1644; J1650; J1940; J2185; J2250; J2543; J2704; J2930; J3010; J3360; J3480; J7060; J7120; Q9967; U0005; C1751; G0475; J1815; J2060; J2270; J2920; J3420; J7040; J7050; J7512; U0003